=== PATIENT | female | born 1960 | race African-American/Black ===

== ENCOUNTER 2016-05-08 20:37 | Emergency (ER) | payer OTHER ==
--- NOTE | 2016-05-08 20:57 | ED SYNCOPE COMPLAINT ---
History of Present Illness General Chief Complaint: General Adult Stated Complaint: "FAINTED AT WORK, CHEST PRESSURE" Source: patient Exam Limitations: no limitations Vital Signs & Intake/Output Vital Signs & Intake/Output Vital Signs Date Time Temp Pulse Resp B/P Pulse O2 O2 Flow FiO2 Ox Delivery Rate 05/09 0104 97.5 86 18 110/55 96 Room Air 05/08 2247 97.2 84 16 145/70 99 Room Air 05/08 2144 96.8 05/08 2136 Room Air 05/08 2049 98.3 79 20 150/75 96 ED Intake and Output 05/09 0000 05/08 1200 Intake Total 0 Output Total Balance 0 Intake, Oral 0 Allergies Coded Allergies: NO KNOWN ALLERGIES (08/10/12) Reconcile Medications Hydroxychloroquine Sulfate 200 MG TABLET 1 TAB PO BID DIRECTED (Reported) Losartan/Hydrochlorothiazide (Losartan-Hctz 50-12.5 MG Tab) 50 MG-12.5 MG TABLET 1 TAB PO DAILY DIRECTED (Reported) Omeprazole Magnesium (Prilosec Otc) 20 MG TABLET.DR 1 TAB PO DAILY DIRECTED (Reported) Triage Note: PER PT WAS LEAVING WORK, HAD COAT ON AND FELT VERY HOT, LIGHTHEADED AND THEN PASSED OUT, UPON WAKING FELT LIGHT HEADED AND CHEST PRESSURE 4/10. FINISHED PREDNISONE YESTERDAY FOR ALLERGIC RXN TO UNKNOWN SOURCE. Triage Nurses Notes Reviewed? yes Timing: single episode today Context: STANDING TALKING TO COLLEAGE Loss of Consciousness: brief (seconds) Associated Symptoms: DIZZINESS, DYSPNEA HPI: This is a 56-year-old female presents from work after syncopal episode. She states she was standing and talking to her colic which started to feel a little dizzy and lightheaded. The next thing she knew she was on the ground and her rubbing her back. No chest pain prior to syncope however she states she feels some chest pressure now. History of syncopal episode as well last week. She states at that time she was sick and had productive cough. The next day she was seen by Dr. Hernandez who put her on a course of azithromycin and prednisone. She states she can medication prescriptions couple of days ago and was feeling better. She states today's episode was out of the blue. Positive family history of coronary disease in her brother. She also has a history of lupus and is on walk when able. Currently she rates the chest pain as 3 out of 10. (BONNY THOMASON MD) Past History Travel History Traveled to [place] past 21 day No Medical History Any Pertinent Medical History? see below for history Neurological: NONE EENT: NONE Cardiovascular: hypertension Respiratory: NONE Gastrointestinal: NONE Hepatic: NONE Renal: NONE Musculoskeletal: NONE Psychiatric: NONE Endocrine: NONE Blood Disorders: LUPUS Surgical History Surgical History: non-contributory Psychosocial History What is your primary language Congolese Tobacco Use: Never used Family History Comment: BROTHER - STENT IN 40'S Hx Contributory? Yes (BONNY THOMASON MD) Review of Systems Review of Systems Constitutional: Reports: chills, fever. EENTM: Reports: no symptoms. Respiratory: Reports: short of breath. Denies: cough. Cardiovascular: Reports: chest pain, syncope. Denies: palpitations, peripheral edema. GI: Denies: abdominal pain. Genitourinary: Reports: no symptoms. Musculoskeletal: Reports: no symptoms. Skin: Reports: no symptoms. Neurological/Psychological: Reports: no symptoms. All Other Systems: Reviewed and Negative (BONNY THOMASON MD) Physical Exam Physical Exam General Appearance: well developed/nourished, alert, awake, mild distress Head: atraumatic, normal appearance Eyes: Bilateral: normal appearance, PERRL, EOMI. Ears, Nose, Throat: normal pharynx, normal ENT inspection, hearing grossly normal Neck: normal inspection, supple, full range of motion Respiratory: normal breath sounds, chest non-tender, no respiratory distress Cardiovascular: regular rate/rhythm Gastrointestinal: normal bowel sounds, soft, non-tender Extremities: normal inspection, normal capillary refill, normal range of motion, no edema Psychiatric: awake, alert, oriented x 3 Cranial Nerves: normal hearing, normal speech, PERRL Motor/Sensory: no motor/sensory deficits Skin: intact, normal color, warm/dry Core Measures ACS in differential dx? Yes ASA ordered for poss ACS? Yes-ordered CVA/TIA Diagnosis: No Severe Sepsis Present: No Septic Shock Present: No (BONNY THOMASON MD) Progress Differential Diagnosis: AMI, aortic dissection, orthostatic syncope, pulmonary embolus, TIA/CVA, DYSRHYTHMIA, JODEE, DEHYDRATION Plan of Care: Orders Procedure Date/time Status TROPONIN LEVEL 05/09 0100 Complete EKG 05/09 0100 Active RAPID VIRAL INFLUENZA A 02/01 2249 Complete MISTAKE 05/08 2106 Active Telemetry/Enterprise Software Developer 05/08 2106 Active TROPONIN LEVEL 05/08 2106 Complete D-DIMER 05/08 2106 Complete COMPREHENSIVE METABOLIC PANEL 05/08 2106 Complete CBC WITHOUT DIFFERENTIAL 05/08 2106 Complete EKG 05/08 2039 Active Laboratory Tests 05/09/16 0103: Troponin I < 0.01 05/08/162119: Anion Gap 7, Estimated GFR 51 L, BUN/Creatinine Ratio 20.0, Glucose 107 H, Calcium 9.2, Total Bilirubin 0.4, AST 21, ALT 41, Alkaline Phosphatase 99, Troponin I < 0.01, Total Protein 7.2, Albumin 3.9, Globulin 3.3, Albumin/ Globulin Ratio 1.2, D-Dimer 367 H, CBC w Diff NO MAN DIFF REQ, RBC 4.22, MCV 83.0, MCH 27.5, RDW 14.4, MPV 7.6, Gran % 73.7, Lymphocytes % 20.3 L, Monocytes % 5.4, Eosinophils % 0.3, Basophils % 0.3, Absolute Granulocytes 7.0 H, Absolute Lymphocytes 1.9, Absolute Monocytes 0.5, Absolute Eosinophils 0, Absolute Basophils 0, PUBS MCHC 33.2 Diagnostic Imaging: Viewed by Me: CT Scan. Discussed w/RAD: CT Scan. Radiology Impression: PATIENT: JOE AUSTIN PRESENT AGE: 56 PATIENT ACCOUNT NO: [id number] : 56 LOCATION: [facility] ORDERING PHYSICIAN: BONNY THOMASON MD SERVICE DATE: 05/08/16 EXAM TYPE: CAT - CTA CHEST-PULMONARY EMBOLISM EXAMINATION: CT ANGIOGRAM OF THE CHEST WITH AND WITHOUT CONTRAST (CT PULMONARY ANGIOGRAM FOR PE) CLINICAL INFORMATION: 56- year-old woman with syncope and chest pressure. COMPARISON: 08/10/2012 chest radiograph TECHNIQUE: Prior to contrast administration, noncontrast localization images were obtained. Subsequently, multidetector volumetric imaging was performed from the thoracic inlet to below the diaphragms following the administration of 95 mL Optiray 350 intravenous contrast. No contrast reaction reported Sagittal, coronal, and MIP oblique sagittal reformatted images were obtained on the CT workstation, uploaded to PACS, and reviewed. Total exam dose- length product 441 mGy-cm FINDINGS: QUALITY OF STUDY/CONTRAST BOLUS: Satisfactory. PULMONARY ARTERIES: No central or segmental pulmonary emboli. LUNG : No focal consolidation, nodules or masses. PLEURA: No pleural effusion or pneumothorax. MEDIASTINUM: Normal heart size. No pericardial effusion. No hilar or mediastinal lymphadenopathy. CHEST WALL/AXILLA: No axillary or internal mammary lymphadenopathy. OSSEOUS STRUCTURES: No acute or suspicious osseous abnormality. UPPER ABDOMEN: Unremarkable. IMPRESSION: No evidence of acute or chronic pulmonary emboli. DICTATED BY: MARIBEL VARGAS MD DATE/TIME DICTATED:2246 VENEER JOINTER:KAREL DATE/TIME TRANSCRIBED:05/08/162246 CONFIDENTIAL, DO NOT COPY WITHOUT APPROPRIATE AUTHORIZATION. <Electronically signed in Other Vendor System> SIGNED BY: MARIBEL VARGAS MD 05/08/16 7136 Initial ED EKG: NSR, PVC Rhythm Strip: sinus tachycardia Hand-Off Endorsed To: SAMINA SANFORD MD Endorsed Time: 2316 Pending: EKG, labs (REPEAT TROPONIN) (BONNY THOMASON MD) Departure Departure Disposition: HOME OR SELF CARE Condition: Stable Clinical Impression Primary Impression: Syncope and collapse Referrals: ERIC MADSEN,RACQUEL Ordaz (PCP/Family) Janice LAM MD Additional Instructions: Follow-up with her regular doctor and with the paper reclaiming machine operator listed. Return to the ER for any changing or worsening symptoms. Departure Forms: Customer Survey General Discharge Information (BONNY THOMASON MD) Departure Comments pt with trop neg x 2, ekg benign x 2. She is feeling better to my exam. She would like to go home. I discussed these findings with her. She is stable for discharge and will follow up with paper reclaiming machine operator. (CLARIBEL MADSEN,SAMINA Gonzales)
[2016-05-08 21:32] LABS: ABSOLUTE BASOPHIL COUNT 0 /CUMM (0.0-0.2); ABSOLUTE EOSINOPHIL COUNT 0 /CUMM (0.0-0.7); ABSOLUTE LYMPH COUNT 1.9 /CUMM (1.2-3.4); ABSOLUTE MONOCYTE COUNT 0.5 /CUMM (0.10-0.60); BASOPHIL % 0.3 % (0.0-2.0); EOSINOPHIL % 0.3 % (0-5); GRANULOCYTE % 73.7 % (42.2-75.2); MEAN CORPUSCULAR HGB 27.5 PG (27.0-31.0); MEAN CORPUSCULAR HGB CONC 33.2 G/DL (33.0-37.0); MEAN PLATELET VOLUME 7.6 FL (7.4-10.4); PLATELET COUNT 506 /CUMM (130-400); RBC DISTRIBUTION WIDTH 14.4 % (11.5-14.5); RED BLOOD CELL CT 4.22 /CUMM (4.20-5.40); WHITE BLOOD CELL COUNT 9.4 /CUMM (4.8-10.8)
[2016-05-08] MEDS ORDERED: HYDROXYCHLOROQ200 M2 PO (22:09)
[2016-05-08] MEDS ORDERED: LOSARTAN-HCTZ1 EAC1 PO (22:09)
[2016-05-08] MEDS ORDERED: PRILOSEC OTC20 M1 PO (22:09)
--- NOTE | 2016-05-08 22:54 | CT SCAN REPORT ---
EXAMINATION: CT ANGIOGRAM OF THE CHEST WITH AND WITHOUT CONTRAST (CT PULMONARY ANGIOGRAM FOR PE) CLINICAL INFORMATION: 56-year-old woman with syncope and chest pressure. COMPARISON: 08/10/2012 chest radiograph TECHNIQUE: Prior to contrast administration, noncontrast localization images were obtained. Subsequently, multidetector volumetric imaging was performed from the thoracic inlet to below the diaphragms following the administration of 95 mL Optiray 350 intravenous contrast. No contrast reaction reported Sagittal, coronal, and MIP oblique sagittal reformatted images were obtained on the CT workstation, uploaded to PACS, and reviewed. Total exam dose-length product 441 mGy-cm FINDINGS: QUALITY OF STUDY/CONTRAST BOLUS: Satisfactory. PULMONARY ARTERIES: No central or segmental pulmonary emboli. LUNG: No focal consolidation, nodules or masses. PLEURA: No pleural effusion or pneumothorax. MEDIASTINUM: Normal heart size. No pericardial effusion. No hilar or mediastinal lymphadenopathy. CHEST WALL/AXILLA: No axillary or internal mammary lymphadenopathy. OSSEOUS STRUCTURES: No acute or suspicious osseous abnormality. UPPER ABDOMEN: Unremarkable. IMPRESSION: No evidence of acute or chronic pulmonary emboli.
[2016-05-09 01:04] VITALS: BP 110/55
== END 2016-05-09 02:07 ==
LOC: ERH 20:37
PROVIDERS: Emergency Medicine
DX: R07.89 Other chest pain (principal); R55 Syncope and collapse
CPT/HCPCS: 87804; 87804-59; 93005; 93010